=== PATIENT | male | born 1955 | race Caucasian/White ===

== ENCOUNTER 2018-07-17 17:15 | Inpatient (IN) | payer OTHER ==
--- NOTE | 2018-07-17 17:29 | EDPHY ---
H & P Stated Complaint: Back pain x 8 weeks no new trauma Time Seen by Provider: 07/17/18 17:29 HPI/ROS: Chief complaint: Back pain History of present illness: This is a 62-year-old male who presents to the emergency department for evaluation of back pain. He states he has had pain for the last 8-10 weeks. It began after bowling. Initially mild in nature it has significantly worsened. He did see his primary care doctor and states he was placed on an anti-inflammatory pain medication (unssure what it was) 3 times a day for 10 days with no effect. He stopped taking the medication because it did not help. He is scheduled to get an MRI it later this week as well see is a spine doctor. However, the pain continues to worsen. It is radiating into his right and left leg but primarily the right leg. Over the last few days it has gotten to the point where he cannot move. He had to crawl to the car this evening to come to the emergency department. No history of direct trauma. No fevers. No bowel or bladder dysfunction. Review of systems: A 10 point review of systems was obtained and other than described above was negative. - Medical/Surgical History Hx Asthma: No Hx Chronic Respiratory Disease: No Hx Diabetes: No Hx Cardiac Disease: No Hx Renal Disease: No Hx Cirrhosis: No Hx Alcoholism: No Hx HIV/AIDS: No Hx Splenectomy or Spleen Trauma: No Other PMH: kidney stones - Social History Smoking Status: Never smoked - Physical Exam Exam: General Appearance: Alert, appears very uncomfortable. Eyes: Pupils equal and round no pallor or injection. ENT, Mouth: Mucous membranes moist. Respiratory: There are no retractions, lungs are clear to auscultation. Cardiovascular: Regular rate and rhythm. Gastrointestinal: Abdomen is soft and non tender, no masses, bowel sounds normal. Neurological: Alert and oriented x4. Strength and sensation intact and symmetrical. Reflexes are intact in the lower extremities. Positive straight leg raise on the right, equivocal on the left. Skin: Warm and dry, no rashes. Musculoskeletal: He does not want to move in bed as it is too painful. Psychiatric: Patient is oriented X 3, there is no agitation. Constitutional: Initial Vital Signs Temperature (C) 37.0 C 07/17/18 17:21 Heart Rate 79 07/17/18 17:21 Respiratory Rate 16 07/17/18 17:21 O2 Sat (%) 97 07/17/18 17:21 O2 Delivery Mode Room Air O2 (L/minute) 2 Allergies/Adverse Reactions: morphine Allergy (Verified 07/17/18 17:20) Home Medications: Medication Instructions Recorded Aleve 07/17/18 Medical Decision Making - Diagnostics Imaging Results: Imaging Impressions Lumbar Spine MRI 07/17/18 17:39 Impression: 1. L4-L5: Severe central canal stenosis secondary to large right paramedian disk herniation, extrusion, and bilateral facet arthropathy. 2. Right kidney cortical scarring in the upper pole region, partially visualized. 3. Please see above findings at specific disk levels. Findings and recommendations discussed with Emergency Department physician, ELSIE Churchill at 18:48 hour, 07/17/2018. Final report concurs with initial preliminary interpretation. Imaging: Discussed imaging studies w/ fisher scallop Radiologist ED Course/Re-evaluation: Patient is discussed with my secondary supervising physician Dr. Iraida Cruz. Patient presents with low back pain and associated right leg radiculopathy. He is nontoxic. MR is obtained shows a large L4-L5 disc herniation. He has been symptomatically treated with fentanyl, Valium, Toradol , Decadron. He does report improvement in pain, however he is still not able to move well, certainly not able to perform ADLs. He will be admitted to the hospitalist service under the care of Dr. Pacheco Feliciano. I have consulted with Neurosurgery, Dr. Weber, he asked that patient be kept NPO overnight. He will see patient in the morning. I have discussed the plan with the patient and his voiced understanding and agreement with it. Differential Diagnosis: Included but not limited to muscle spasms, herniated intervertebral disc, vertebral body fracture, cauda equina syndrome, spinal canal lesion - Data Points Laboratory Results: Laboratory Results 07/17/18 17:40 07/17/18 17:40 07/17/18 07/17/18 07/17/18 17:49 17:40 17:40 WBC 5.80 10^3/uL 10^3/uL (3.80-9.50) RBC 5.32 10^6/uL 10^6/uL (4.40-6.38) Hgb 15.9 g/dL g/dL (13.7-17.5) POC Hgb 15.6 gm/dL gm/dL (13.7-17.5) Hct 45.7 % % (40.0-51.0) POC Hct 46 % % (40-51) MCV 85.9 fL fL (81.5-99.8) MCH 29.9 pg pg (27.9-34.1) MCHC 34.8 g/dL g/dL (32.4-36.7) RDW 12.9 % % (11.5-15.2) Plt Count 174 10^3/uL 10^3/uL (150-400) MPV 9.6 fL fL (8.7-11.7) Neut % (Auto) 64.0 % % (39.3-74.2) Lymph % (Auto) 24.5 % % (15.0-45.0) [place] % (Auto) 9.3 % % (4.5-13.0) Eos % (Auto) 1.2 % % (0.6-7.6) Baso % (Auto) 0.7 % % (0.3-1.7) Nucleat RBC Rel Count 0.0 % % (0.0-0.2) Absolute Neuts (auto) 3.71 10^3/uL 10^3/uL (1.70-6.50) Absolute Lymphs (auto) 1.42 10^3/uL 10^3/uL (1.00-3.00) Absolute Monos (auto) 0.54 10^3/uL 10^3/uL (0.30-0.80) Absolute Eos (auto) 0.07 10^3/uL 10^3/uL (0.03-0.40) Absolute Basos (auto) 0.04 10^3/uL 10^3/uL (0.02-0.10) Absolute Nucleated RBC 0.00 10^3/uL 10^3/uL (0-0.01) Immature Gran % 0.3 % % (0.0-1.1) Immature Gran # 0.02 10^3/uL 10^3/uL (0.00-0.10) POC Sodium 143 mEq/L mEq/L (135-145) Sodium 141 mEq/L mEq/L (135-145) POC Potassium 3.7 mEq/L mEq/L (3.3-5.0) Potassium 3.8 mEq/L mEq/L (3.3-5.0) POC Chloride 103 mEq/L mEq/L (97-110) Chloride 103 mEq/L mEq/L (97-110) Carbon Dioxide 29 mEq/l mEq/l (22-31) Anion Gap 9 mEq/L mEq/L (6-14) POC BUN 22 mg/dL mg/dL (7-23) BUN 22 mg/dL mg/dL (7-23) Creatinine 0.8 mg/dL mg/dL (0.7-1.3) POC Creatinine 0.8 mg/dL mg/dL (0.7-1.3) Estimated GFR > 60 Glucose 139 mg/dL H mg/dL (70-100) POC Glucose 148 mg/dL H mg/dL (70-100) Calcium 9.3 mg/dL mg/dL (8.5-10.4) Medications Given: Discontinued Medications Dexamethasone (Decadron Injection) 10 mg IVP EDNOW ONE Stop: 07/17/18 19:01 Last Admin: 07/17/18 19:18 Dose: Not Given Dexamethasone (Decadron Injection) 10 mg IVP EDNOW ONE Stop: 07/17/18 19:16 Last Admin: 07/17/18 19:16 Dose: 10 mg Diazepam (Valium) 5 mg IVP EDNOW ONE Stop: 07/17/18 17:40 Last Admin: 07/17/18 17:55 Dose: 5 mg Fentanyl (Sublimaze) 100 mcg IVP EDNOW ONE Stop: 07/17/18 17:40 Last Admin: 07/17/18 17:55 Dose: 100 mcg Sodium Chloride (Ns) 1,000 mls @ 0 mls/hr IV EDNOW ONE; Wide Open PRN Reason: Protocol Stop: 07/17/18 17:40 Last Admin: 07/17/18 17:55 Dose: 1,000 mls Ketorolac Tromethamine (Toradol) 30 mg IVP EDNOW ONE Stop: 07/17/18 19:01 Last Admin: 07/17/18 19:14 Dose: 30 mg Point of Care Test Results: Chemistry 07/17/18 17:49 POC Sodium 143 mEq/L mEq/L (135-145) POC Potassium 3.7 mEq/L mEq/L (3.3-5.0) POC Chloride 103 mEq/L mEq/L (97-110) POC BUN 22 mg/dL mg/dL (7-23) POC Creatinine 0.8 mg/dL mg/dL (0.7-1.3) POC Glucose 148 mg/dL H mg/dL (70-100) ISTAT H&H 07/17/18 17:49 POC Hgb 15.6 gm/dL gm/dL (13.7-17.5) POC Hct 46 % % (40-51) Departure - Departure Disposition: [facility] Inpatient Acute Clinical Impression: Lumbar herniated disc Condition: Fair
[2018-07-17] MEDS ORDERED: fentaNYL 100 MCG/2 ML INJ IVP ONE (17:39)
[2018-07-17] MEDS ORDERED: DIAZEPAM 5 MG/ML 1 ML SYR IVP ONE (17:39)
[2018-07-17] MEDS ORDERED: NS 1,000 ML IV ONE (17:39)
[2018-07-17 17:51] LABS: PLATELET COUNT 174 10^3/uL (150-400)
[2018-07-17] MEDS ORDERED: DEXAMETHASONE 10 MG/ML VIAL IVP ONE (19:00)
[2018-07-17] MEDS ORDERED: KETOROLAC 30 MG/1 ML SDV IVP ONE (19:00)
[2018-07-17] MEDS ORDERED: DEXAMETHASONE 4 MG/ML VIAL IVP ONE (19:15)
[2018-07-17] MEDS ORDERED: ONDANSETRON 4 MG/2 ML VIAL IVP PRN (19:23)
[2018-07-17] MEDS ORDERED: LORazepam 2 MG/ML INJ IVP PRN (19:23)
[2018-07-17] MEDS ORDERED: HYDROmorphONE/DILAUDID 2 MG TAB PO PRN (19:23)
[2018-07-17] MEDS ORDERED: ACETAMINOPHEN 325 MG TAB PO PRN (19:23)
[2018-07-17] MEDS ORDERED: LORazepam 0.5 MG TAB PO PRN (19:23)
[2018-07-17] MEDS ORDERED: ONDANSETRON DISINTEGRATING 4 MG TAB PO PRN (19:23)
[2018-07-17] MEDS ORDERED: HYDROmorphONE/DILAUDID 2 MG/ML INJ IVP PRN (19:23)
[2018-07-17] MEDS ORDERED: BISACODYL 10 MG SUPP PR PRN (19:25)
[2018-07-17] MEDS ORDERED: MAGNESIUM HYDROXIDE 30 ML UDCUP PO PRN (19:25)
[2018-07-17] MEDS ORDERED: POLYETHYLENE GLYCOL 3350 17 GM PKT PO PRN (19:25)
[2018-07-17] MEDS ORDERED: LACTULOSE 20 GM/30 ML UDCUP PO PRN (19:25)
[2018-07-17] MEDS ORDERED: METHOCARBAMOL 500 MG TAB PO PRN (20:01)
--- NOTE | 2018-07-17 20:05 | PDGENHP ---
History and Physical - Chief Complaint Acute on chronic back pain - History of Present Illness Primary care provider: Dr. Francis Anaya HPI: 62-year-old male presents with acute on chronic back pain characterized as electric, shooting pain located in his lower back, radiating down his right lower extremity, exacerbated with ambulation, alleviated by lying on his side. The patient reports the onset of the symptoms was approximately 8-10 weeks ago, in the setting of bowling. Since that time, he has seen his primary care provider, taken a 10 day course of scheduled NSAIDs, without relief. He reports that the pain has progressively worsened, and is now so extreme that he is completely unable to ambulate. He has not been taking any opiate pain medications and he has not been engaging in a formal physical therapy program. That being said, the patient does not think that he can ambulate safely enough to engage in therapy at this time. He did receive a combination of fentanyl, dexamethasone, Toradol, Valium in the emergency department, and his pain is currently alleviated while still. He denies any bowel or bladder symptoms and denies any fevers or chills. History Information - Allergies/Home Medication List Allergies/Adverse Reactions: morphine Allergy (Verified 07/17/18 17:20) Home Medications: Aleve 07/17/18 [Last Taken Unknown] I have personally reviewed and updated: family history, medical history, social history, surgical history - Past Medical History Additional medical history: Nephrolithiasis. BPH. Intermittent back issues approximately every 12 months, generally self limited and treated by stretching and [id number] medications - Surgical History Additional surgical history: Right partial nephrectomy, with removal of approximately 1/3 of the kidney for reasons related to nephrolithiasis - Family History Additional family history: Mother with carotid stenosis, no family history of premature coronary artery disease - Social History Smoking Status: Never smoked Alcohol Use: Occasionally Drug Use: None Additional social history: Independent in his ADLs comma patient was physically active at baseline prior to onset of symptoms, engaging in regular aerobic exercise without any inducible chest pain Review of Systems Review of Systems: ROS: 10pt was reviewed & negative except for what was stated in HPI & below Muscolosketal: Reports: back pain, other (Right lower extremity sciatica) Physical Exam Physical Exam: Temp Pulse Resp BP Pulse Ox 36.8 C 66 16 172/90 H 100 07/17/18 19:52 07/17/18 19:52 07/17/18 19:52 07/17/18 19:52 07/17/18 19:52 O2 (L/minute) 2 Constitutional: no apparent distress, appears nourished, not in pain, No chronically ill appearing Eyes: PERRL, anicteric sclera, EOMI Ears, Nose, Mouth, Throat: moist mucous membranes, hearing normal, ears appear normal, no oral mucosal ulcers Cardiovascular: regular rate and rhythym, no murmur, rub, or gallop, No edema Respiratory: no respiratory distress, no rales or rhonchi, clear to auscultation Gastrointestinal: normoactive bowel sounds, soft, non-tender abdomen, no palpable masses Skin: warm, No rash (On back) Musculoskeletal: other (No tenderness palpation over the lumbar spine or right sacroiliac joint) Neurologic: AAOx3, sensation intact bilaterally, No weakness (Motor strength 5/ 5 bilateral lower extremities) Psychiatric: interacting appropriately, not anxious, not encephalopathic, thought process linear Lab Data & Imaging Review 07/17/18 17:40 07/17/18 17:40 WBC 5.80 10^3/uL (3.80-9.50) 07/17/18 17:40 RBC 5.32 10^6/uL (4.40-6.38) 07/17/18 17:40 Hgb 15.9 g/dL (13.7-17.5) 07/17/18 17:40 POC Hgb 15.6 gm/dL (13.7-17.5) 07/17/18 17:49 Hct 45.7 % (40.0-51.0) 07/17/18 17:40 POC Hct 46 % (40-51) 07/17/18 17:49 MCV 85.9 fL (81.5-99.8) 07/17/18 17:40 MCH 29.9 pg (27.9-34.1) 07/17/18 17:40 MCHC 34.8 g/dL (32.4-36.7) 07/17/18 17:40 RDW 12.9 % (11.5-15.2) 07/17/18 17:40 Plt Count 174 10^3/uL (150-400) 07/17/18 17:40 MPV 9.6 fL (8.7-11.7) 07/17/18 17:40 Neut % (Auto) 64.0 % (39.3-74.2) 07/17/18 17:40 Lymph % (Auto) 24.5 % (15.0-45.0) 07/17/18 17:40 [place] % (Auto) 9.3 % (4.5-13.0) 07/17/18 17:40 Eos % (Auto) 1.2 % (0.6-7.6) 07/17/18 17:40 Baso % (Auto) 0.7 % (0.3-1.7) 07/17/18 17:40 Nucleat RBC Rel Count 0.0 % (0.0-0.2) 07/17/18 17:40 Absolute Neuts (auto) 3.71 10^3/uL (1.70-6.50) 07/17/18 17:40 Absolute Lymphs (auto) 1.42 10^3/uL (1.00-3.00) 07/17/18 17:40 Absolute Monos (auto) 0.54 10^3/uL (0.30-0.80) 07/17/18 17:40 Absolute Eos (auto) 0.07 10^3/uL (0.03-0.40) 07/17/18 17:40 Absolute Basos (auto) 0.04 10^3/uL (0.02-0.10) 07/17/18 17:40 Absolute Nucleated RBC 0.00 10^3/uL (0-0.01) 07/17/18 17:40 Immature Gran % 0.3 % (0.0-1.1) 07/17/18 17:40 Immature Gran # 0.02 10^3/uL (0.00-0.10) 07/17/18 17:40 POC Sodium 143 mEq/L (135-145) 07/17/18 17:49 Sodium 141 mEq/L (135-145) 07/17/18 17:40 POC Potassium 3.7 mEq/L (3.3-5.0) 07/17/18 17:49 Potassium 3.8 mEq/L (3.3-5.0) 07/17/18 17:40 POC Chloride 103 mEq/L (97-110) 07/17/18 17:49 Chloride 103 mEq/L (97-110) 07/17/18 17:40 Carbon Dioxide 29 mEq/l (22-31) 07/17/18 17:40 Anion Gap 9 mEq/L (6-14) 07/17/18 17:40 POC BUN 22 mg/dL (7-23) 07/17/18 17:49 BUN 22 mg/dL (7-23) 07/17/18 17:40 Creatinine 0.8 mg/dL (0.7-1.3) 07/17/18 17:40 POC Creatinine 0.8 mg/dL (0.7-1.3) 07/17/18 17:49 Estimated GFR > 60 07/17/18 17:40 Glucose 139 mg/dL (70-100) H 07/17/18 17:40 POC Glucose 148 mg/dL (70-100) H 07/17/18 17:49 Calcium 9.3 mg/dL (8.5-10.4) 07/17/18 17:40 Visualized and Interpreted imaging results: Yes Interpretation: MRI with severe canal stenosis at L4-L5 with right-sided disc herniation Assessment & Plan Assessment: 62-year-old male presents with acute on chronic intractable lower back pain Plan: 1. Lower back pain. Acute, new problem this provider, further workup indicated. Most likely secondary to a combination of severe canal stenosis as well as right-sided L4-L5 disc herniation resulting in sciatica and inability to ambulate -patient has failed conservative treatment and is currently unable to ambulate, requiring aggressive IV pain medications, IV anti-inflammatories, and consideration for surgical intervention -discussed with En Nicole, emergency department provider, he has reported to me that he has consulted with Dr. Ran Johnson who is recommended NPO status after midnight, evaluation for potential intervention -IV and oral Dilaudid for pain, p.r.n. Robaxin for moderate pain and muscle tension, IV Ativan as needed, supportive care with scheduled Tylenol, heat and ice -bowel regimen ordered -incentive spirometer -RCRI score of 0, conferring is 0.5% perioperative cardiovascular risk for morbidity and/or mortality, conferring low cardiovascular risk for intermediate risk neuro surgical intervention, recommend proceeding to procedure without additional cardiovascular risk stratification at this time -will check coags -will get physical and occupational therapy evaluations either after surgical intervention or to determine ambulatory status if more conservative measures are recommended by Neurosurgery 2. BPH. Chronic, patient's PSA level has been followed as an outpatient, he does not currently have urinary symptoms -I really reviewed the patient's MRI, it does not provide clear imaging of the patient's prostate, his recommendation for prostate MRI in the outpatient setting will need to be conducted through focused study 3. Nephrolithiasis. MRI does demonstrate right upper pole scarring from his previous partial nephrectomy, otherwise creatinine levels normal Diet. Regular, NPO after midnight Prophylaxis. High risk patient, SCDs, hold pharmacologic given possible procedure Code. Full Disposition. Anticipated discharge is uncertain this time, meets inpatient admission criteria as he has failed outpatient management of severe lumbar stenosis with disc herniation, requiring IV pain medications and surgical evaluation.
[2018-07-17] MEDS: SENNOSIDES/DOCUSATE SODIUM TAB PO SCH (22:48)
[2018-07-17] MEDS: D5W 1/2 NS W/ 20 KCl/L 1,000 ML IV SCH (22:57)
[2018-07-18 05:48] LABS: INR 0.99 (0.83-1.16); PROTIME(PATIENT) 13.3 SEC (12.0-15.0)
[2018-07-18] MEDS: ACETAMINOPHEN 500 MG TAB PO SCH ×2 (06:50→16:40)
--- NOTE | 2018-07-18 08:19 | HOSPPROG ---
Hospitalist Progress Note Assessment/Plan: Ted Laughlin is a 62-year-old male presents with acute on chronic intractable lower back pain. Today is my first encounter w the patient, chart reviewed. *Acute lower back pain -MRI shows severe canal stenosis @ L4-L5 w right sided disc herniation -neurosurgery to see today, to get a microdiscectomy -medical manage w pain meds and muscle relaxant *BPH -chronic elevated PSA level *nephrolithiasis -MRI does demonstrate right upper pole scarring from his previous partial nephrectomy, otherwise creatinine levels normal *Plan: NPO-surgery today at 15:00 Subjective: Ramesh is having no pain while lying still. Objective: Vital Signs Temp Pulse Resp BP Pulse Ox 36.6 C 94 17 133/95 H 95 07/18/18 07:46 07/18/18 07:46 07/18/18 07:46 07/18/18 07:46 07/18/18 07:46 07/17/18 07/18/18 07/19/18 05:59 05:59 05:59 Intake Total 1000 500 Output Total 350 Balance 650 500 PT 13.3 SEC (12.0-15.0) 07/18/18 04:43 INR 0.99 (0.83-1.16) 07/18/18 04:43 - Physical Exam Constitutional: no apparent distress, appears nourished Eyes: PERRL Ears, Nose, Mouth, Throat: hearing normal Cardiovascular: regular rate and rhythym Respiratory: no respiratory distress Skin: warm, normal color Musculoskeletal: other (pt lying in bed, says his pain is radiating down his right leg, describes it as a 'dick horse') Neurologic: AAOx3, sensation intact bilaterally Psychiatric: interacting appropriately ICD10 Worksheet Patient Problems: Problems Problem Status Onset Lumbar herniated disc Acute
--- NOTE | 2018-07-18 09:33 | PDMN ---
Medical Necessity Medical necessity: MCG M63 back pain, pt with progressive back pain, unable to ambulate safely- failed outpt management MRI shows severe lumbar stenosis with disc herniation, req IV pain med., poss surgical intervention- neuro consult pend., anticipated discharge uncertain at this time, further monitoring and eval. needed.
[2018-07-18] MEDS: SENNOSIDES/DOCUSATE SODIUM TAB PO SCH ×2 (10:30→20:26)
--- NOTE | 2018-07-18 10:48 | GCON ---
NEUROSURGERY CONSULT NOTE DATE OF CONSULTATION: 07/18/2018 The patient was seen and evaluated at approximately 6:50 a.m. on the general care floor at [facility]. HISTORY OF PRESENT ILLNESS: The patient is a 62-year-old man with about 10 weeks of back and right l eg pain. He apparently was bowling when this originally started. It was not as severe, but he says for the last 36 hours, it has been quite severe and he has been virtually unable to walk. The pain i s exacerbated with ambulation, but seems to be better when he lies on his side. He came in last nigh t to the [facility] where an MRI of the lumbar spine was obtaine d showing a very large disk extrusion at L4-5, eccentric to the right with significant compression of the lateral recess and severe spinal canal stenosis. He has undergone a few visits of superintendent geophysical laboratory apy as an outpatient and has also tried some anti-inflammatories, but ultimately has not had any succ ess with these. He has not had any steroid injections. He does not have any weakness and denies any bowel or bladder incontinence. REVIEW OF SYSTEMS: A 10-point review of systems is negative other than that described above in HPI. PAST MEDICAL HISTORY: 1. Nephrolithiasis. 2. Benign prostatic hypertrophy. 3. Intermittent low back pain. PAST SURGICAL HISTORY: Right partial nephrectomy. FAMILY HISTORY: Positive for carotid stenosis in the mother, but otherwise noncontributory to this a dmission. SOCIAL HISTORY: Patient is a lifelong nonsmoker. He drinks occasional social alcohol. Does not use any other drugs. ALLERGIES: Morphine. MEDICATIONS: Aleve. PHYSICAL EXAMINATION: VITAL SIGNS: Currently, he is afebrile with normal stable vital signs. NEURO LOGIC: He is awake, alert, and oriented x3. Cranial nerves 2-12 are grossly normal. Upper extremit y strength is 5/5 throughout all muscle groups and sensation is normal and intact. In the lower extr emities, he has 5/5 strength at the hip flexors, extensors, knee flexors, extensors, and plantar and dorsiflexion. He has severe pain in the posterior and lateral aspect of the right leg with straight leg raise. Otherwise, his sensation is intact to gross touch. Deep tendon reflexes are normal. IMAGING REVIEW: See HPI. LABORATORY REVIEW: White count is 5.8, hemoglobin 15.9, hematocrit 45.7, platelet count is 174,000. Glucose is 141, potassium 3.8, BUN is 22, creatinine 0.8, glucose is 139. ASSESSMENT/PLAN: The patient is a 62-year-old male with acute right L5 radiculopathy from a very lar ge disk herniation at L4-5. We discussed the options, including continued conservative management ve rsus proceeding to surgery. He has tried some conservative management at home, including physical th erapy and anti-inflammatories, has not yet tried epidural steroid injections. Given the large size o f this disk and the extreme amount of lateral recess and central canal stenosis that he has, I did re commend that the best course of action might be to fix this surgically. This certainly would be most likely to get him better faster and avoid any future weakness or bowel and bladder complaints that m ay result from this herniation. We discussed the nature of the microdiskectomy and all the risks and benefits thereof. He would like to proceed with this and we will work to get this done later today. Most likely, if this is successful and he has no issues, he can go home either later tonight or jesus after this procedure. In the meantime, he will continue to take anti-inflammatories and pain m edications. Thanks for the kind consultation. /[id number]/KIM
--- NOTE | 2018-07-18 11:29 | ASMTCMCOM ---
CM Note CM Note Notes: Patient admitted for intractable back pain that has failed conservative measures. He was seen by neurosurgery today and has elected to proceed with a microdiskectomy this afternoon. He is normally independent and lives with his . I anticipate he will d/c independently, either tonight or tomorrow, and follow up with his surgeon to determin therapy needs. Case Management available for any immediate d/c needs. Date Signed: 07/18/2018 11:28 AM Electronically Signed By:Rosie Zamora RN
[2018-07-18] MEDS: D5W 1/2 NS W/ 20 KCl/L 1,000 ML IV SCH (12:00)
[2018-07-18] MEDS ORDERED: EPINEPHrine 1 MG/ML INJ ONE (13:14)
[2018-07-18] MEDS ORDERED: BUPIVACAINE 0.25% 30 ML SDV ONE (13:14)
[2018-07-18] MEDS ORDERED: THROMBIN (BOVINE) 5,000 UNIT VIAL TP ONE (13:16)
[2018-07-18] MEDS ORDERED: BACITRACIN ZINC 14.2 GM OINTTUBE TP ONE (13:17)
[2018-07-18] MEDS ORDERED: CHLORHEXIDINE GLUC HIBICLENS 118 ML BTL TP ONE (13:17)
[2018-07-18] MEDS ORDERED: BACITRACIN 50,000 UNITS/10 ML SYR IRR ONE (13:18)
[2018-07-18] MEDS ORDERED: LR 1,000 ML IV ONE (13:23)
--- NOTE | 2018-07-18 14:00 | PDANEPAE ---
ANE History of Present Illness back pain, here for microdiscectomy ANE Past Medical History - Pulmonary History Hx Oxygen in Use at Home: No Hx Sleep Apnea: Yes Sleep Apnea Screening Result - Last Documented: Positive - Endocrine History Hx Diabetes: No ANE Review of Systems Review of Systems: ANE Patient History - Allergies Allergies/Adverse Reactions: morphine Allergy (Verified 07/17/18 17:20) - Home Medications Home Medications: Naproxen Sodium [Aleve 220 MG (*)] 220 mg PO DAILY PRN 07/17/18 [Last Taken ] - NPO status NPO Since - Liquids (Date): 07/18/18 NPO Since - Liquids (Time): 00:00 NPO Since - Solids (Date): 07/18/18 NPO Since - Solids (Time): 00:00 - Smoking Hx Smoking Status: Never smoked - Alcohol Use Alcohol Use: Occasionally ANE Labs/Vital Signs - Labs Result Diagrams: 07/17/18 17:40 07/17/18 17:40 - Vital Signs Blood Pressure: 114/66 Heart Rate: 91 Respiratory Rate: 14 O2 Sat (%): 97 Height: 172.72 cm Weight: 81.64 kg ANE Physical Exam - Airway Neck exam: FROM Mallampati Score: Class 3 Mouth exam: normal dental/mouth exam - Pulmonary Pulmonary: no respiratory distress - Cardiovascular Cardiovascular: regular rate and rhythym - ASA Status ASA Status: II ANE Anesthesia Plan Anesthesia Plan: general endotracheal anesthesia
[2018-07-18] MEDS ORDERED: MIDAZOLAM 2 MG/2 ML VIAL IVP ONE (14:01)
[2018-07-18] MEDS ORDERED: PROPOFOL/EMULSION 500 MG/50 ML BOTTLE IV ONE (14:26)
[2018-07-18] MEDS ORDERED: ROCURONIUM 50 MG/5 ML VIAL ONE (14:26)
[2018-07-18] MEDS ORDERED: PROPOFOL 200 MG/20 ML VIAL ONE (14:26)
[2018-07-18] MEDS ORDERED: REMIFENTANIL HCL 1 MG VIAL ONE (14:26)
[2018-07-18] MEDS ORDERED: LIDOCAINE 2% 100 MG/5 ML SYR ONE (14:26)
[2018-07-18] MEDS ORDERED: LIDOCAINE HCL 160 MG/4 ML LTA KIT TP ONE (14:26)
[2018-07-18] MEDS ORDERED: ceFAZolin 2 GM in D5W 100 ML IV ONE (14:40)
[2018-07-18] MEDS ORDERED: ceFAZolin 2 GM/DEXTROSE 100 ML IV ONE (15:00)
[2018-07-18] MEDS ORDERED: HYDROCODONE/APAP 10/325 TAB PO PRN (15:05)
[2018-07-18] MEDS ORDERED: ACETAMINOPHEN 500 MG TAB PO PRN ×2 (15:07→16:13)
[2018-07-18] MEDS ORDERED: IBUPROFEN 600 MG TAB PO PRN (15:07)
--- NOTE | 2018-07-18 15:11 | POSTOPPROG ---
Post Op Note Date of Operation: 07/18/18 Surgeon: Thee Johnson [employer] Shift Supervisor: Mila Hood PA-C Anesthesia: GET(General Endotracheal) Pre-op Diagnosis: Lumbar radiculopathy Post-op Diagnosis: same Procedure: Left sided L4/5 microdiscectomy Inf/Abcess present in the surg proc area at time of surgery?: No EBL: Minimal Complications: None observed SOAP Progress Note Assessment/Plan: Assessment: Plan: 07/18/18 15:09 S: Patient in PACU. Stable with expected incisional pain. O: NAD, VSS Following commands CN II-XII grossly intact PERRL, EOMI BLE 5/5 SHARMA X4 Incision c/d/i A: 62 yo male sp left sided L4/5 microdiscectomy for large left sided herniated disc P: -Back to med/surg -Optimize pain management- added ibuprofen and norco, hopefully won't need dilaudid -PT/OT -Advance diet as tolerated -No bending, lifting, twisting more than 5-10 pounds -Dispo- hopefully home in am if pain controlled and passes therapies -Seen by Dr. Johnson in PACU. Objective: Vital Signs Temp Pulse Resp BP Pulse Ox 36.8 C 91 14 114/66 97 07/18/18 13:13 07/18/18 14:01 07/18/18 14:01 07/18/18 14:01 07/18/18 14:01 07/17/18 07/18/18 07/19/18 05:59 05:59 05:59 Intake Total 1000 500 Output Total 350 300 Balance 650 200 PT 13.3 SEC (12.0-15.0) 07/18/18 04:43 INR 0.99 (0.83-1.16) 07/18/18 04:43
[2018-07-18] MEDS ORDERED: PHENYLEPHRINE 10 MG/ML SDV ONE (15:21)
[2018-07-18] MEDS ORDERED: ONDANSETRON 4 MG/2 ML VIAL ONE (15:50)
[2018-07-18] MEDS ORDERED: DEXAMETHASONE 4 MG/ML VIAL ONE ×2 (15:50)
[2018-07-18] MEDS ORDERED: KETOROLAC 30 MG/1 ML SDV ONE (16:01)
[2018-07-18] MEDS ORDERED: oxyCODONE IR 5 MG TAB PO PRN (16:13)
[2018-07-18] MEDS ORDERED: LR 500 ML IV PRN (16:13)
[2018-07-18] MEDS ORDERED: fentaNYL 100 MCG/2 ML INJ IVP PRN (16:13)
[2018-07-18] MEDS ORDERED: PROMETHAZINE HCL 25 MG/ML INJ IVP PRN (16:13)
[2018-07-18] MEDS ORDERED: ONDANSETRON 4 MG/2 ML VIAL IVP PRN (16:13)
[2018-07-18] MEDS ORDERED: NALOXONE HCL 0.4 MG/ML INJ IVP PRN (16:13)
[2018-07-18] MEDS ORDERED: HYDROCODONE/APAP 5/325 TAB PO PRN (16:13)
[2018-07-18] MEDS ORDERED: DIAZEPAM 5 MG/ML 1 ML SYR IVP PRN (16:13)
[2018-07-18] MEDS ORDERED: GLYCOPYRROLATE 0.2 MG/1 ML VIAL ONE (16:27)
[2018-07-18] MEDS ORDERED: NEOSTIGMINE METHYLSULFATE 5 MG/5 ML SYR ONE (16:27)
--- NOTE | 2018-07-18 16:45 | POSTANESTH ---
Post Anesthetic Evaluation Cardiovascular Status: Normal, Stable, Similar to Pre-Op Cond Respiratory Status: Normal, Stable, Similar to Pre-op Cond. Level of Consciousness/Mental Status: Can Participate in Eval, Moderately Sleepy Pain Control: Adequate, Prn Tx Ordered Nausea/Vomiting Control: Adequate, Prn Tx Ordered Complications Possibly Related to Anesthesia: None Noted
--- NOTE | 2018-07-18 17:12 | GOP ---
DATE OF OPERATION: 07/18/2018 SURGEON: Thee Johnson MD NEUROSURGEON: Thee Johnson MD MANAGER POST: MAYA Melendez. ANESTHESIA: General endotracheal. PREOPERATIVE DIAGNOSIS: Right large herniated nucleus pulposus with right L5 radiculopathy. POSTOPERATIVE DIAGNOSIS: Right large herniated nucleus pulposus with right L5 radiculopathy. PROCEDURE PERFORMED: 1. Right-sided L4 hemilaminotomy, L4-5 medial facetectomy, microdiskectomy. 2. Use of the operative microscope. 3. Intraoperative neurophysiologic monitoring, including somatosensory evoked potentials and EMG. FINDINGS: SPECIMENS: There were no specimens. ESTIMATED BLOOD LOSS: 25 cc. Fluids and urine output per the anesthesia record. All neurophysiologic monitoring was stable throug hout the case. INDICATIONS: This is a 62-year-old man who presents with 10 weeks of right leg pain which has been e xceedingly worse over the past 36 hours. He has not been able to walk. He has tried some conservati ve management at home including physical therapy and anti-inflammatories, although he has not yet had any steroid injections. He was admitted to the medicine service for pain control. We were consulte d for his MRI findings. Given the very large size of his disk with almost complete obliteration of t he spinal canal, I did recommend the fastest approach to fixing his problem would be surgical diskect shon. He agreed. DESCRIPTION OF PROCEDURE: After informed consent was obtained from the patient, the patient was brou ght to the operating room and a formal time-out was performed, identifying the patient by name, medic al record number, and date of . Preoperative antibiotics were given. The endotracheal tube was placed and general endotracheal anesthesia was smoothly induced. All appropriate leads were placed for intraoperative neurophysiologic monitoring and baseline potentials were obtained. The patient th en turned in the prone position on the Victor M table. All appropriate pressure points were padded an d checked. The lumbar region was then prepped and draped in the normal sterile fashion. A spinal ne edle was placed just to the right of midline and a lateral radiograph confirmed the L4-5 interspace. A midline 1.5 cm incision was then marked and 10 cc of 0.25% Marcaine with epinephrine infiltrated i n the skin for hemostasis. The skin incision was made using a 10 blade. The subcutaneous tissues we re dissected using monopolar electrocautery. The fascia was opened just to the right of the midline. The metrics dilators were then used to dilate up to the 18 mm tube and an 18 x 6 cm quadrant retrac tor was then placed and docked onto the L4 lamina. Its placement was confirmed using lateral radiogr aph. Next, the operative microscope was brought on the field and the remainder of the procedure was perfor med under high-power magnification. First, the borders of the lamina were identified and the pars was visualized. Next, using the high-s peed drill, with a 3 mm connie bur, a hemilaminotomy was drilled with care to preserve the medial fa cet. The medial facet was also drilled to decompress the lateral recess. At this point, the yellow ligament was opened. The yellow ligament was removed using Kerrison punches exposing the dura. The nerve root was visualized and it was tented by something beneath it, which was the herniated disk fra gment. The nerve root was retracted over slightly and ball-tip nerve hooks were used to free the dis k fragment from the dura and the disk fragment was then removed en bloc. It was quite large, nearly 2 x 2 cm. We were then able to palpate beneath the nerve root and the thecal sac with dissectors and nerve hooks to be sure that there were no further retained fragments of disk. A few small fragments were removed from within the L4-5 disk space and the wound was then copiously irrigated using bacitr acin irrigation. Some local anesthetic was then placed over the nerve root and Gelfoam was used to c ontrol any bleeding in the lateral recess. The retractor was then removed. The fascia was closed us ing interrupted 0 Vicryl. The deep dermis was closed using interrupted 2-0 Vicryl. The skin was mark anthony sed using Dermabond. The patient was then awakened in the operating room and was transferred to the PACU in stable condition. There were no operative complications. I was scrubbed and present for the entire procedure. All sponge and needle counts were correct at the end of the case. DRAINS: There were no drains. /[id number]/MODL
[2018-07-19] MEDS: SENNOSIDES/DOCUSATE SODIUM TAB PO SCH (08:45)
[2018-07-19 08:47] VITALS: BP 155/96
--- NOTE | 2018-07-19 09:27 | NEUSURGPN ---
Assessment/Plan: A: 62 yo male sp left sided L4/5 microdiscectomy for large left sided herniated disc POD1 P: -Optimize pain management -PT/OT -Advance diet as tolerated -No bending, lifting, twisting more than 5-10 pounds -Dispo today -Please notify NS with any change in neuro/motor exam Subjective: denies any new pain, numbness, tingling or weakness Objective: NAD Following commands BLE 5/5 SHARMA X4 Incision c/d/i - Physician Discussed Patient with : [facility] Physical Exam - Vitals, I&O, Labs I and O 07/18/18 07/19/18 07/20/18 05:59 05:59 05:59 Intake Total 1000 1690 Output Total 350 1910 Balance 650 -220 Weight 81.647 kg 82.611 kg Intake: Oral (ml) 540 IV Intake (ml) 650 IV Infused (ml) 1000 500 D5W 1/2 NS W/ 20 KCl/L 1, 500 000 ml @ 75 mls/hr IV CONT LEILA Rx#:[id number] Output: Urine (ml) 350 1900 Toilet 350 300 Urinal 1600 Estimated Blood Loss (ml) 10 Other: Number of Voids Toilet 1 3 Vital Signs Temp Pulse Resp BP Pulse Ox 36.9 C 79 18 155/96 H 88 L 07/19/18 08:00 07/19/18 08:00 07/19/18 08:00 07/19/18 08:00 07/19/18 08:00 ICD10 Worksheet Patient Problems: Problems Problem Status Onset Lumbar herniated disc Acute
--- NOTE | 2018-07-19 11:10 | HOSPPROG ---
Hospitalist Progress Note Assessment/Plan: Ted Laughlin is a 62-year-old male presents with acute on chronic intractable lower back pain. *Acute lower back pain -MRI shows severe canal stenosis @ L4-L5 w right sided disc herniation -s/p microdiscectomy -doing great today *BPH -chronic elevated PSA level *nephrolithiasis -MRI does demonstrate right upper pole scarring from his previous partial nephrectomy, otherwise creatinine levels normal *Plan: dc per neurosurgery Subjective: Ramesh is feeling well, has no complaints. Objective: Vital Signs Temp Pulse Resp BP Pulse Ox 36.9 C 79 18 155/96 H 88 L 07/19/18 08:00 07/19/18 08:00 07/19/18 08:00 07/19/18 08:00 07/19/18 08:00 07/18/18 07/19/18 07/20/18 05:59 05:59 05:59 Intake Total 1000 1690 Output Total 350 1910 Balance 650 -220 PT 13.3 SEC (12.0-15.0) 07/18/18 04:43 INR 0.99 (0.83-1.16) 07/18/18 04:43 - Physical Exam Constitutional: no apparent distress, appears nourished, not in pain Eyes: anicteric sclera Ears, Nose, Mouth, Throat: hearing normal Respiratory: no respiratory distress Skin: warm Musculoskeletal: muscular tenderness Neurologic: AAOx3 Psychiatric: interacting appropriately, not anxious ICD10 Worksheet Patient Problems: Problems Problem Status Onset Lumbar herniated disc Acute
--- NOTE | 2018-07-19 12:30 | GDS ---
DISCHARGE DIAGNOSES: 1. Acute low back pain noted with severe canal stenosis at L4-L5. 2. Benign prostatic hypertrophy. 3. Nephrolithiasis. CONSULTATION: Dr. Thee Johnson. HISTORY OF PRESENT ILLNESS: Briefly, the patient is a 62-year-old man who presented with acute on ch ronic intractable lower back pain. He had an MRI, which showed severe canal stenosis at L4-L5 with a right-sided disk herniation. He was seen and evaluated by the neurosurgical team. Options were giv en to him. He had surgery on July 18, and had an L4-5 microdiskectomy for a large left-sided jeanie iated disk. He is doing great today. He has some surgical pain, but the pain down his legs complete ly resolved. He will be discharged home with close followup with Dr. Johnson. HOSPITAL COURSE: 1. Acute low back pain due to severe canal stenosis. He is status post L4-L5 microdiskectomy. He h as done extremely well. He has been given instructions by Neurosurgery to not twist, turn, bend over . 2. BPH. Further followup with his PCP. 3. Nephrolithiasis. His MRI demonstrates right upper pole scarring from his previous partial nephre ctomy. Otherwise, his creatinine has been stable. DISCHARGE CONDITION: Stable. Blood pressure is 155/96, heart rate is 79, respiratory rate of 18, O2 sats on room air 96%, temperature 36.9 Celsius. MEDICATIONS AT DISCHARGE: Please see the EMR. DISCHARGE INSTRUCTIONS: 1. I went through with him about staying well hydrated and avoiding constipation while on narcotics. 2. Follow up with Dr. Johnson in 2-3 weeks. 3. No bending, twisting, or lifting greater than 10 pounds. /[id number]/MODL
== END 2018-07-19 13:06 | disposition home or self-care (01) | DRG 520 ==
LOC: F3N 20:18
PROVIDERS: ADMIT Internal Medicine; ATTEND Internal Medicine
PROC: 0SB20ZZ Excision of Lumbar Vertebral Disc, Open Approach (ICD-10-PCS; principal; 2018-07-18 15:00)
DX: M51.16 Intervertebral disc disorders with radiculopathy, lumbar region (principal); N40.0 Benign prostatic hyperplasia without lower urinary tract symptoms; Z87.442 Personal history of urinary calculi
CPT/HCPCS: 82435-PO; 82565-PO; 82947-PO; 84132-PO; 84295-PO; 84520-PO; 85014-PO; 96374; 97161-GP; 97165-GO; J0171; J0690; J1100; J1885; J2001; J2250; J2370; J2405; J2704; J2710; J3010; J3360